=== PATIENT | male | born 1970 | race Caucasian/White ===

== ENCOUNTER 2023-03-21 13:31 | Emergency (ER) | payer OTHER, SELFPAY ==
[2023-03-21 13:44] VITALS: BP 130/97
[2023-03-21 14:31] LABS: % Basophils 1.1 % (0-2); % Eosinophils 2.5 % (0-6); % Immature Granulocytes 0.2 % (0-0.5); % Lymphocytes 14.6 % (20.5-51.1); % Monocytes 9.6 % (1.7-9.3); Absolute Basophils 0.1 10^3/uL (0-0.2); Absolute Eosinophils 0.2 10^3/uL (0-0.7); Absolute Lymphocytes 1.2 10^3/uL (1.2-3.4); Absolute Monocytes 0.8 10^3/uL (0.1-0.6); Absolute Neutrophils 6.1 10^3/uL (1.4-6.5); Hematocrit 30.2 % (39.0-52.0); Hemoglobin 9.6 g/dL (13.0-18.0); Mean Corp Hgb Conc. 31.8 g/dL (33.0-37.0); Mean Corpuscular Hgb 24.7 pg (27.0-31.0); Mean Corpuscular Volume 77.8 fL (80.0-94.0); Mean Platelet Volume 8.7 fL (7.4-10.4); Nucleated Red Blood Cells % 0 % (-); Platelet Count 638 10^3/uL (130-400); Red Blood Cell Count 3.88 10^6/uL (4.70-6.10); Red Cell Dist. Width 17.3 % (11.5-14.5); White Blood Cell Count 8.5 10^3/uL (4.8-10.8)
[2023-03-21 14:41] LABS: ALT (SGPT) 30 U/L (0-50); AST (SGOT) 77 U/L (17-59); Albumin 3.8 g/dl (3.5-5.0); Alkaline Phosphatase 490 U/L (38-126); Blood Urea Nitrogen 9 mg/dl (9-20); Calcium 9.3 mg/dl (8.4-10.2); Carbon Dioxide 26 mmol/L (22-30); Chloride 102 mmol/L (98-107); Glucose 101 mg/dl (70-99); Lipase 60 U/L (23-300); Potassium 4.5 mmol/L (3.5-5.1); Sodium 133 mmol/L (135-145); Total Protein 7.2 g/dl (6.3-8.2); eGFR > 60.00
[2023-03-21 15:41] LABS: Total Bilirubin 0.9 mg/dl (0.2-1.3)
== END 2023-03-21 18:51 ==
LOC: EMR 13:31
PROVIDERS: EMERGENCY PHYSICIAN Student in an Organized Health Care Education/Training Program
DX: R32 Unspecified urinary incontinence (principal); Z53.21 Procedure and treatment not carried out due to patient leaving prior to being seen by health care provider; R39.198 Other difficulties with micturition; R22.43 Localized swelling, mass and lump, lower limb, bilateral; R20.0 Anesthesia of skin; Z93.3 Colostomy status
CPT/HCPCS: 80053; 83690; 85025

== ENCOUNTER → 2023-03-30 07:46 | Outpatient (REF) | payer OTHER, SELFPAY | LOC: MRI 07:46 | PROVIDERS: ATTENDING PHYSICIAN Internal Medicine Hospice and Palliative Medicine | DX: C20 Malignant neoplasm of rectum (principal); C78.7 Secondary malignant neoplasm of liver and intrahepatic bile duct; C78.00 Secondary malignant neoplasm of unspecified lung; R32 Unspecified urinary incontinence | CPT/HCPCS: 72158; A9575 ==

== ENCOUNTER 2023-04-04 17:52 | Observation (INO) | payer OTHER, SELFPAY ==
[2023-04-04 12:13] VITALS: BP 130/86
--- NOTE | 2023-04-04 13:02 | ED.GENMED ---
History of Present Illness
General
Chief Complaint: Abdominal Pain
Source: patient
Exam Limitations: none
Time Seen by Provider: 04/04/23 12:22
Travel History
Have you had any contact with someone who has COVID-19?: No
Do you have any symptoms of coronavirus? Fever > 100 degrees, chills, cough, shortness of breath, sore throat, loss of taste or smell, muscle aches, or headache?: No
History of Present Illness
History of Present Illness:
52-year-old male with stage IV colon cancer and prior colostomy which was placed in December 12 in [place]. He notes decreased output recently. He notes more protrusion of the stoma. He notes it is discolored and feels that it is necrotic. No
fever. No vomiting. No other complaints at this time.
Past History
Past History
ED Past Medical History: Cancer (Stage IV:) and Other (Seymour disease)
Social History
Tobacco: Non-smoker
Personal:
Phy Exam
Physical Exam
Physical Exam:
General: Cachectic appearing male no acute respiratory distress
HEENT: Normocephalic atraumatic
Heart: Regular rate and rhythm
Lungs: Clear bilaterally no wheezing
Abdomen is soft protruding ostomy noted. Ostomy itself is somewhat firm to the touch. There is a bacon discoloration no the distal portion of the ostomy that goes around in a bandlike fashion.
Extremities: No cyanosis
Skin: Warm no rash
Course
Orders/Labs/Results
Orders:
Orders
04/04/23 Lunch
Regular
04/04/23 13:01
Complete Blood Count/With Diff Urgent
Comprehensive Metabolic Panel Urgent
Lactic Acid Q4H
Comment: CANCEL 2nd LACTIC ACID IF 1st LACTIC ACID IS LESS THAN 2
04/04/23 15:03
WOUND/OSTOMY CONSULT Routine
Reason for Consult: history of prolapsing colostomy
04/04/23 15:08
Activity As Directed
Activity Level: Bathroom Privileges
04/04/23 20:00
Docusate Sodium [Colace] 100 mg PO BID
Polyethylene Glycol Powder [Miralax] 17 grams PO BID
Abnormal Lab Results
04/04/23
13:01
RBC 3.51 L 10^6/uL
(4.70-6.10)
Hgb 8.6 L g/dL
(13.0-18.0)
Hct 27.9 L %
(39.0-52.0)
MCV 79.5 L fL
(80.0-94.0)
MCH 24.5 L pg
(27.0-31.0)
MCHC 30.8 L g/dL
(33.0-37.0)
RDW 16.3 H %
(11.5-14.5)
Plt Count 588 H 10^3/uL
(130-400)
Absolute Lymphs (auto) 0.7 L 10^3/uL
(1.2-3.4)
Absolute Monos (auto) 0.8 H 10^3/uL
(0.1-0.6)
Neutrophils % 77.8 H %
(42.2-75.2)
Lymphocytes % 8.9 L %
(20.5-51.1)
Monocytes % 9.5 H %
(1.7-9.3)
Sodium 133 L mmol/L
(135-145)
Glucose 108 H mg/dl
(70-99)
AST 61 H U/L
(17-59)
Alkaline Phosphatase 509 H U/L
(38-126)
Albumin 3.3 L g/dl
(3.5-5.0)
04/04/23 13:01
04/04/23 13:01
Vital Signs
Initial and Last Documented VS:
Initial Vital Signs
Temp Pulse Resp BP Pulse Ox
98.2 F 122 18 130/86 100
04/04/23 12:13 04/04/23 12:13 04/04/23 12:13 04/04/23 12:13 04/04/23 12:13
Last Documented Vital Signs
Temp Pulse Resp BP Pulse Ox
98.2 F 122 18 130/86 100
04/04/23 12:13 04/04/23 12:13 04/04/23 12:13 04/04/23 12:13 04/04/23 12:13
MDM/Problems Addressed
Differential Diagnosis Includes:
Protruding ostomy with discoloration of the ostomy per the patient. They noted decreased output.
Discussed findings and sent pictures with colorectal surgery. Labs pending
*Critical Care Note
Total Time (30-74mins, 75-104mins- exclusive of procedures): Not Applicable
Update Note
Update Note:
Colorectal surgery saw the patient. They applied glucose to the stoma and were able to reduce the prolapsed ostomy. They did recommend patient be admitted overnight for bowel regimen and observation. Hospitalist called
ED Attending Note
-
Portions of this chart may have been created with voice recognition software.� Occasional wrong word or��sound alike� substitutions may have occurred due to the inherent limitations of voice recognition software.
Discharge Plan
Departure
Patient Disposition: Admit
Date of Disposition: 04/04/23
Time of Disposition: 15:41
Admit to: Med/Surg
Presentation/result/management discussed w/ accepting MD/DO: Hospitalist
Discharge Problem:
Colostomy prolapse
Referrals:
Brit Cummins MD [Family Provider] -
Interventions
Interventions:
*Risk Screen - Suicide Last Done: 04/04/23 12:13
*General Assessment Last Done: 04/04/23 12:13
*Neglect/Abuse Screening Last Done: 04/04/23 12:13
*ED COVID-19 Vaccine History Last Done: 04/04/23 12:13
FV-Mzrcfj-Gwobzbilqm Assessment Last Done: 04/04/23 13:05
[2023-04-04 13:22] LABS: ALT (SGPT) 27 U/L (0-50); AST (SGOT) 61 U/L (17-59); Albumin 3.3 g/dl (3.5-5.0); Alkaline Phosphatase 509 U/L (38-126); Blood Urea Nitrogen 10 mg/dl (9-20); Calcium 8.7 mg/dl (8.4-10.2); Carbon Dioxide 25 mmol/L (22-30); Chloride 103 mmol/L (98-107); Glucose 108 mg/dl (70-99); Potassium 4.4 mmol/L (3.5-5.1); Sodium 133 mmol/L (135-145); Total Bilirubin 0.9 mg/dl (0.2-1.3); Total Protein 6.6 g/dl (6.3-8.2); eGFR > 60.00
[2023-04-04 13:25] LABS: % Basophils 0.9 % (0-2); % Eosinophils 2.5 % (0-6); % Immature Granulocytes 0.4 % (0-0.5); % Lymphocytes 8.9 % (20.5-51.1); % Monocytes 9.5 % (1.7-9.3); % Neutrophils 77.8 % (42.2-75.2); Absolute Basophils 0.1 10^3/uL (0-0.2); Absolute Eosinophils 0.2 10^3/uL (0-0.7); Absolute Lymphocytes 0.7 10^3/uL (1.2-3.4); Absolute Monocytes 0.8 10^3/uL (0.1-0.6); Absolute Neutrophils 6.1 10^3/uL (1.4-6.5); Hematocrit 27.9 % (39.0-52.0); Hemoglobin 8.6 g/dL (13.0-18.0); Mean Corp Hgb Conc. 30.8 g/dL (33.0-37.0); Mean Corpuscular Hgb 24.5 pg (27.0-31.0); Mean Corpuscular Volume 79.5 fL (80.0-94.0); Mean Platelet Volume 8.8 fL (7.4-10.4); Nucleated Red Blood Cells % 0 % (-); Platelet Count 588 10^3/uL (130-400); Red Blood Cell Count 3.51 10^6/uL (4.70-6.10); Red Cell Dist. Width 16.3 % (11.5-14.5); White Blood Cell Count 7.9 10^3/uL (4.8-10.8)
--- NOTE | 2023-04-04 13:38 | CON.CRS ---
Consultation
-
Date/Time Consultation Requested: 04/04/2023, 12:45
Date/Time Consultation Performed: 04/04/2023, 13:40
Requesting Provider: Rubén Mcclain PA-C
Performing Provider: Aj Crump MD
Reason for Consultation: prolapsing stoma
Medical History
-
Chief Complaint: prolapsing stoma
History of Present Illness:
52yo male with a history of stage IV sigmoid colon cancer, presents with a prolapsing stoma and mucosal sloughing. The patient states he had a diverting colostomy in [place] 1.5 years ago secondary to an obstruction, which is where he was diagnosed with
colon cancer. He saw three oncologists at [place], [facility], and [facility]. All have given him a prognosis of 6 months. He has refused chemotherapy with each oncologist. He has metastasis in his liver and lungs. He is currently on palliative
care. His bowel movements have been lessened to every other day and more recently has increased his Miralax to twice a day. He also has had more difficulty urinating and was recently started on Flomax, which helped. He has apparently had two
instances of prolapse in the past two weeks and have used the 'sugar trick' to reduce. He states the prolapse again started to protrude more today and appeared necrotic looking. We have been consulted for further surgical opinion.
Past Medical History
Past Medical History: Cancer (stage 4 colon cancer) and Other (hemophilia B)
Past Surgical History: Other (colostomy creation - Nov 2022 in [place])
Social History
Tobacco: Non-Smoker
Personal:
Family History
Family History: Reviewed & Not Pertinent
Allergies / Home Medications
Allergy/AdvReac Type Severity Reaction Status Date / Time
No Known Allergies Allergy Verified 04/04/23 12:16
Review of Systems
-
History Source: Patient
Abdomen/GI: Other (prolapsing stoma)
A 10 point review of systems was completed, and was negative except as per HPI.
Physical Exam
Vital Signs
Temp 98.2 F 04/04/23 12:13
Pulse 122 04/04/23 12:13
Resp Rate 18 04/04/23 12:13
Blood pressure 130/86 04/04/23 12:13
SaO2 100 04/04/23 12:13
04/03/23 04/04/23 04/05/23
06:59 06:59 06:59
Actual Weight 59.4 kg
Lab Results / Allergies
04/04/23 13:01
Allergy/AdvReac Type Severity Reaction Status Date / Time
No Known Allergies Allergy Verified 04/04/23 12:16
Physical Exam
General: Well Developed and Well Nourished
GI: Soft, Non Tender, Non Distended and Other (stoma with healthy tissue, warm to the touch, with prolapse, very mild sloughing on the side of the stoma - reduced at the bedside using table sugar)
Neuro: AO x 3
Data Reviewed
-
MRI: Report Reviewed by me and Discussed with Physician
Labs: Labs Reviewed by me
Old Records: Reviewed
Assessment / Plan
-
Assessment: 52yo male with stage IV colon cancer, s/p diverting loop colostomy, refused chemo on palliative care, with prolapsing stoma
Plan:
Stoma was reduced at the bedside after applying table sugar to it and letting it sit for about 20 minutes. Stoma was able to be reduced without resistance. Stoma is still red and healthy appearing post reduction. Recommend admit for pain control and
a day of observation to watch stoma. Recommend bedrest with bathroom privileges. Will start on Miralax BID and Senna BID. Okay to resume regular diet. Wound RN to be consulted. No plans for OR at this time.
[2023-04-04 13:49] LABS: Lactic Acid 1.4 mmol/L (0.7-2.0)
--- NOTE | 2023-04-04 15:47 | WOUNDNOTE ---
HARRY RN NOTE: Patient admitted for prolapsed stoma. PMH of colon cancer stage 4 Colostomy done in [facility] 1.5 yrs ago. Reviewed ANDREIA Louie's note, prolapse treated with sugar and mechanical manipulation. Patient lying in bed during assessment, stoma pink
and flat, peristomal skin intact. Zulema at bedside and patient's mother. Has one set of [place] 4' wafer and pouch, scissors and skin prep given to patient. Additional ostomy supplies ordered from [facility], nurse Naida sanders. Offered to
change appliance for patient, said he can do on his own. Teaching done regarding prolapsed stoma treatment, can use sugar on stoma to reduce and or cold compress then gently push with palm of hand. Family appreciative with care will follow if
needed, otherwise will sign off.
--- NOTE | 2023-04-04 16:30 | HPS.HSE ---
Addendum entered and electronically signed by Jessica Pascual MD 04/04/23 17:45:
52-year-old unfortunate male with colon cancer diagnosed almost 2 years ago at [facility]. He had ostomy done in [place]. Patient is not on any chemo by his choice.
I saw and examined the patient.
The FAN INSTALLER or PA's note was reviewed and I agree with the note.
Comment:
CVS: S1-S2 normal
Chest: CTA B/L
Abdomen: Soft, ostomy stable, empty bag
Extremities: No edema, normal pulses
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
# Prolapsed ostomy and decreased output
-Colorectal surgery reduced stoma after applying table sugar
-MiraLAX twice a day and Colace twice a day
-Regular diet
-Wound care consulted
-He also takes Prune Juice
# Anemia of chronic disease
-Hemoglobin 8.6
-No active bleeding
-Continue to monitor
# Chronic hyponatremia
-Sodium 133
-Continue to monitor
# DVT prophylaxis
-Lovenox subcutaneous
# CODE STATUS
-DNR per patient preference.
aware
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
D/W at bed side
Original Note:
Family Physician
-
Family Physician: Brit Cummins MD
Chief Complaint
-
ostomy prolapse
History of Present Illness
52yo male with a history of stage IV sigmoid colon cancer, presents with a prolapsing stoma and mucosal sloughing. The patient states he had a diverting colostomy in [place] 1.5 years ago secondary to an obstruction, which is where he was diagnosed with
colon cancer. He saw three oncologists at [place], [facility], and [facility]. All have given him a prognosis of 6 months. He has refused chemotherapy with each oncologist. He has metastasis in his liver and lungs. He is currently on palliative
care. His bowel movements have been lessened to every other day and more recently has increased his Miralax to twice a day. he is having hards stools for past few days. patient stated poor appetite and has been eating less as well. denied n/v.
denied fever, chills, chest pain, sob. denied abdominal pain,n,v, d. denied dysuria or hematuria. He states the prolapse again started to protrude more today and appeared necrotic looking which prompted him to come to the ER.
stoma was reduced at the bedside after applying table sugar to it.
Medical History
Past Medical History
Past Medical History: Reports Other
Additional Past Medical History:
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
Past Surgical History: Reports Other
Additional Past Surgical History:
ostomy creation
Social History
Tobacco: Non-smoker
Alcohol: None
Drug: None
Family History
Family History: Not pertinent
Allergies / Home Medications
Allergies reflects when Allergies were last updated in [facility].
Home Medications with original date entered in [employer]
Allergy/Medication List:
Allergies
Allergy/AdvReac Type Severity Reaction Status Date / Time
No Known Allergies Allergy Verified 04/04/23 12:16
Home Medications
oxycodone 10 mg tablet 10 mg PO Q6H PRN moderate to severe pain 04/04/23
oxycodone 20 mg tablet 20 mg PO Q6H PRN moderate to severe pain 04/04/23
oxycodone 30 mg tablet,crush resistant,extended release 12 hr (OxyContin) 30 mg PO Q12H pain 04/04/23
tamsulosin 0.4 mg capsule 0.8 mg PO HS Urinary Issue 04/04/23
Review of Systems
-
Constitutional: Reports No Symptoms
EENT: Reports No Symptoms
Respiratory: Reports No Symptoms
Cardiac: Reports No Symptoms
Abdomen/GI: Reports Other (stoma prolapse)
: Reports No Symptoms
Musculoskeletal: Reports No Symptoms
Skin: Reports No Symptoms
Neurological: Reports No Symptoms
Endocrine: Reports No Symptoms
Hematologic/Lymphatic: Reports No Symptoms
Psych: Reports No Symptoms
Physical Exam
Vital Signs
Vital Signs
Temp Pulse Resp BP Pulse Ox
98.2 F 122 18 130/86 100
04/04/23 12:13 04/04/23 12:13 04/04/23 12:13 04/04/23 12:13 04/04/23 12:13
Physical Exam
General: Well Developed, Well Nourished and No Apparent Distress
HEENT: NormoCephalic, Moist mucous membranes and Atraumatic
Respiratory: Clear
Cardiac: S1/S2 and Regular Rhythm; No Murmur or Rub
GI: Soft, Non Tender, Non Distended and Normal Bowel Sounds; No Organomegaly
Rectal: Deferred by Provider
Musculoskeletal: No Clubbing, No Cyanosis and No Edema
Skin: No Rash
Neuro: AO x 3 and Nonfocal/grossly intact
Psych: Calm
Laboratory Results
-
04/04/23 13:01
04/04/23 13:01
Laboratory Results
Lactic Acid Cancelled 04/04/23 16:45
Total Bilirubin 0.9 mg/dl (0.2-1.3) 04/04/23 13:01
AST 61 U/L (17-59) H 04/04/23 13:01
ALT 27 U/L (0-50) 04/04/23 13:01
Alkaline Phosphatase 509 U/L (38-126) H 04/04/23 13:01
Data Reviewed
-
Lab Data: Labs Reviewed by me
Impression/Plan
-
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
# Prolapsed ostomy and decreased output
-colorectal surgery reduced stoma after applying table sugar
-MiraLAX twice a day and colace twice a day
-Regular diet
-Wound care consulted
-colorectal following patient.
# Anemia of chronic disease
-Hemoglobin 8.6
-No active bleeding
-Continue to monitor
# Chronic hyponatremia
-Sodium 133
-Continue to monitor
# DVT prophylaxis
-Lovenox subcu
# CODE STATUS
-Full code
[2023-04-04] MEDS: MIRALAX 34 GRAMS PO (17:49)
[2023-04-04 17:59] LABS: Iron 31 ug/dl (49-181)
[2023-04-04 18:10] LABS: Percent Saturation 10 % (20-50); Total Iron Binding Capacity 289 ug/dl (261-462)
[2023-04-04 19:25] LABS: Vitamin B12 727 pg/ml (239-931)
[2023-04-04 19:30] VITALS: BP 110/73; BMI 18.2
--- NOTE | 2023-04-04 20:00 | PTCARENOTE ---
Pt arrived to 3W from ED via stretcher @ approximately 1930. Pt able to ambulate safely to the bed. Pt family present at bedside. Pt AOx3, VSS. Pt oriented to unit and call arredondo within reach. Will continue plan of care.
[2023-04-04] MEDS: OXYCONTIN (CONTROLLED RELEASE) 30 MG PO (20:16)
[2023-04-04] MEDS: MIRALAX 17 GRAMS PO (21:36)
[2023-04-04] MEDS: FLOMAX 0.800000000000000044 MG PO (21:36)
[2023-04-04 23:25] VITALS: BP 107/81
[2023-04-04] MEDS: ROXICODONE 20 MG PO (23:49)
[2023-04-05] MEDS: ROXICODONE 20 MG PO (06:08)
[2023-04-05 07:00] VITALS: BP 113/77
[2023-04-05 07:05] LABS: Hematocrit 27.1 % (39.0-52.0); Hemoglobin 8.5 g/dL (13.0-18.0); Mean Corp Hgb Conc. 31.4 g/dL (33.0-37.0); Mean Corpuscular Hgb 24.8 pg (27.0-31.0); Mean Platelet Volume 8.8 fL (7.4-10.4); Platelet Count 522 10^3/uL (130-400); Red Blood Cell Count 3.43 10^6/uL (4.70-6.10); Red Cell Dist. Width 16.2 % (11.5-14.5); White Blood Cell Count 9.5 10^3/uL (4.8-10.8)
[2023-04-05 07:35] LABS: Blood Urea Nitrogen 10 mg/dl (9-20); Calcium 8.6 mg/dl (8.4-10.2); Carbon Dioxide 23 mmol/L (22-30); Chloride 102 mmol/L (98-107); Estimated Creatinine Clearance 82 ml/min; Glucose 115 mg/dl (70-99); Potassium 4.1 mmol/L (3.5-5.1); Sodium 135 mmol/L (135-145); eGFR > 60.00
[2023-04-05] MEDS: MIRALAX 17 GRAMS PO (08:12)
[2023-04-05] MEDS: OXYCONTIN (CONTROLLED RELEASE) 30 MG PO (08:12)
--- NOTE | 2023-04-05 09:13 | WOUNDNOTE ---
HARRY RN NOTE: Called [facility] for additional ostomy supplies patient may want to try since stoma reduced and smaller size. Nurse Kacey made aware Abran 2 3/' 2 piece ordered and will give to patient to try next pouch change. Will update instructions.
--- NOTE | 2023-04-05 09:30 | W.PN.CRS1 ---
Today's Communication / Plan
-
Okay for DC from CRS standpoint
Would continue low residue long-term and continue MiraLAX and Colace twice daily with MOM as needed
Assessment/Plan
-
52-year-old male with a PMH of stage IV colorectal cancer (diagnosed 1-1/2 years ago due to presentation of obstruction; underwent loop colostomy and was recommended for chemotherapy, but refused; last CT scan on 01/24/2023's showing multiple
pulmonary and liver mets with bulky disease in the pelvis), chronic pain, urinary difficulty (recently started on Flomax twice daily) who presents with prolapse of his ostomy; worsening over the last 3 to 4 months, but significantly prolapsed about
2 weeks ago; he applied sugar after researching on the Internet and this significantly helped; within the last 1 to 2 days, the ostomy prolapsed again and started changing colors, specifically dark red and areas of bacon/black; on exam, ostomy is
beefy red with mucosal sloughing; has issues baseline with constipation, last BM yesterday
AFVSS, labs pending
S/p bedside reduction of prolapsed ostomy
Remains reduced and having ostomy function
� Continue low residue diet; recommend staying on low residue to keep ostomy output liquidy/soft to reduce risk of re�prolapse
� Appreciate WOCN for any advice on preventing ostomy prolapse
� Home pain meds
� Continue MiraLAX twice daily and Colace twice daily; MOM as needed
� Flomax twice daily for urinary retention
�Okay for discharge from CRS standpoint
Subjective Data
Subjective Data
Date of Service: April 05, 2023
No overnight events.
Pain controlled.
Denies nausea/vomiting. Tolerating diet.
+ostomy function +voiding
Objective Data
-
Vital Signs
Temp Pulse Resp BP Pulse Ox
97.7 F 87 16 113/77 99
04/05/23 07:00 04/05/23 07:00 04/05/23 07:00 04/05/23 07:00 04/05/23 08:51
Intake & Output
04/04/23 04/05/23 04/06/23
06:59 06:59 06:59
Intake Total 720 / 720
Output Total 300 / 300
Balance 420 / 420
Intake:
Oral fluids 720 / 720
Output:
Liquid stool amount 300 / 300
Colostomy 300 / 300
Other:
Number of approximated MODERATE 4
amounts of urine
Lab Results
04/05/23 06:39
04/05/23 06:39
Physical Exam
-
General: No Acute Distress and AOx3
HEENT: Grossly Normal
Abdomen: Soft, Non Distended, Non Tender, No Guarding and No Rebound
Skin: Warm and Dry
Wound: No Signs of Infection
--- NOTE | 2023-04-05 10:03 | VNURNOTE ---
Patient is current with VN since 04/03 w/ SN, will monitor progress and plan at discharge.
Patient is also current with Palliative Care.
[2023-04-05] MEDS: ROXICODONE 10 MG PO (10:47)
[2023-04-05 11:01] VITALS: BMI 18.2
--- NOTE | 2023-04-05 13:12 | W.PN.HOSP.TC ---
Today's Communication/Plan
-
Discharge
Assessment / Plan
Assessment / Plan
CVS: S1-S2 normal
Chest: CTA B/L
Abdomen: Soft, ostomy stable,yellow stools
Extremities: No edema, normal pulses
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
# Prolapsed ostomy and decreased output
-Colorectal surgery reduced stoma after applying table sugar
-MiraLAX twice a day and Colace twice a day
-Regular diet
-Ostomy stable
-He also takes Prune Juice
# Anemia of chronic disease
-Hemoglobin 8.6
-TAYLA also
-Pt does not want IV iron
-Will take suppliments at home
-Continue to monitor
# Chronic hyponatremia
-Sodium better
-Continue to monitor
# DVT prophylaxis
-Lovenox subcutaneous
# CODE STATUS
-DNR per patient preference.
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
Pt on Palliative care
D/W at bed side
OK for discharge
Anticipated Discharge: Today
Subjective/Interval History
-
Date of Service: April 05, 2023
Objective Data
-
Labs:
Laboratory Results
04/05/23
06:39
WBC 9.5
Hgb 8.5 L
Hct 27.1 L
Plt Count 522 H
Sodium 135
Potassium 4.1
Chloride 102
Carbon Dioxide 23
BUN 10
Creatinine 0.9
Glucose 115 H
Calcium 8.6
Vital Signs:
Vital Signs
Temp Pulse Resp BP Pulse Ox
97.7 F 87 16 113/77 99
04/05/23 07:00 04/05/23 07:00 04/05/23 07:00 04/05/23 07:00 04/05/23 08:51
I&O
04/04/23 04/05/23 04/06/23
06:59 06:59 06:59
Intake Total 720 / 720
Output Total 300 / 300
Balance 420 / 420
--- NOTE | 2023-04-05 13:17 | W.DS.TRANS ---
Addendum entered and electronically signed by Jessica Pacsual MD 04/06/23 08:17:
Dictation- [id number]
Original Note:
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
-
Discharge Instructions:
Discharge Diagnosis/Procedures Prolapsed ostomy-reduced, Stage IV colorectal
cancer, anemia, iron deficiency
Diet As tolerated
Activity As tolerated
Driving Restrictions As prior to admission
Other Services VN
Instructions:
Stand-Alone Forms:
Changes to Home Medications: Yes
Discharge Medications:
DC Medications w/original date entered in [facility]
oxycodone 10 mg tablet 10 mg PO Q6H PRN moderate to severe pain 04/04/23
oxycodone 20 mg tablet 20 mg PO Q6H PRN moderate to severe pain 04/04/23
oxycodone 30 mg tablet,crush resistant,extended release 12 hr (OxyContin) 30 mg PO Q12H pain 04/04/23
tamsulosin 0.4 mg capsule 0.8 mg PO HS Urinary Issue 04/04/23
docusate sodium 100 mg capsule 100 mg PO BID Constipation #0 caps 04/05/23
ferrous sulfate 325 mg (65 mg iron) tablet 325 mg PO DAILY anemia #30 tabs 04/05/23
polyethylene glycol 3350 17 gram oral powder packet (HealthyLax) 17 g PO BID Constipation #0 ea 04/05/23
Home Medication Changes
new
docusate sodium 100 mg capsule 100 mg PO BID Constipation #0 caps 04/05/23
ferrous sulfate 325 mg (65 mg iron) tablet 325 mg PO DAILY anemia #30 tabs 04/05/23
polyethylene glycol 3350 17 gram oral powder packet (HealthyLax) 17 g PO BID Constipation #0 ea 04/05/23
Pending Results: No
--- NOTE | 2023-04-05 16:32 | VNURNOTE ---
[facility] intake notified of discharge and resumption of services.
== END 2023-04-05 14:51 | disposition home health service (06) ==
LOC: 3 WEST ACU 17:52
PROVIDERS: Physician Assistant; Registered Nurse; ADMITTING PHYSICIAN Hospitalist; CONSULT PHYSICIAN Surgery; EMERGENCY PHYSICIAN Emergency Medicine; FAMILY PHYSICIAN Internal Medicine Hospice and Palliative Medicine
DX: K94.09 Other complications of colostomy (principal); Y84.8 Other medical procedures as the cause of abnormal reaction of the patient, or of later complication, without mention of misadventure at the time of the procedure; Y92.9 Unspecified place or not applicable; R33.9 Retention of urine, unspecified; D63.8 Anemia in other chronic diseases classified elsewhere; E87.1 Hypo-osmolality and hyponatremia; C19 Malignant neoplasm of rectosigmoid junction; D50.9 Iron deficiency anemia, unspecified; C78.7 Secondary malignant neoplasm of liver and intrahepatic bile duct; G89.29 Other chronic pain; Z51.5 Encounter for palliative care; Z66 Do not resuscitate
CPT/HCPCS: 80048; 80053; 82607; 82728; 83540; 83550; 83605; 85025; 85027; 99284; G0378

== ENCOUNTER 2023-05-05 18:09 | Emergency (ER) | payer OTHER, SELFPAY ==
[2023-05-05 18:12] VITALS: BP 115/82
--- NOTE | 2023-05-05 20:14 | ED.GENMED ---
History of Present Illness
General
Chief Complaint: Ostomy Problem
Source: patient and spouse
Time Seen by Provider: 05/05/23 19:54
Travel History
Have you had any contact with someone who has COVID-19?: No
Do you have any symptoms of coronavirus? Fever > 100 degrees, chills, cough, shortness of breath, sore throat, loss of taste or smell, muscle aches, or headache?: No
History of Present Illness
History of Present Illness:
This patient is a 52-year-old male with history of colorectal cancer with lung and liver mets, now on palliative care, transitioning to hospice care shortly who presents emergency department with a ostomy prolapse. He states that this began about a
week ago. He is eating as usual, and he notes normal output from the ostomy without blood. In the past, he has had an ostomy prolapse that has looked 'hard' with 'sloughing', and states that none of this is present at this time, that the ostomy
looks healthy. He came today specifically because he was told that he cannot transition to hospice without getting this reduced. He denies vomiting, fever, chills. His pain is well-controlled at this time.
Past History
Past History
ED Past Medical History: Cancer (Stage IV colon) and Other (Ck disease)
ED Past Surgical History: Bowel resection
Social History
Tobacco: Non-smoker
Drug: None
Personal:
Living: with family
Phy Exam
Physical Exam
Physical Exam:
GENERAL: Alert , in no apparent distress, thin/cachectic appearing
EYE: pupils equal and reactive
NECK: Supple, no significant adenopathy.
ENT: o/p clr, mm slightly dry
CARDIAC: Regular rate and rhythm .
LUNGS: Clear breath sounds bilaterally, no acute respiratory distress, no wheezes/rales/rhonchi
ABDOMEN: Soft, without focal tenderness, no r/g, ostomy noted with prolapse measuring approximately 10 cm without associated necrosis, sloughing, bleeding, discharge, tissue appears well-perfused and healthy
NEUROLOGICAL: Alert and oriented, no focal neuro deficits
SKIN: Warm and dry, skin intact.
MUSCULOSKELETAL: No edema, well perfused.
PSYCH: Normal and appropriate interaction.
Course
Vital Signs
Initial and Last Documented VS:
Initial Vital Signs
Temp Pulse Resp BP Pulse Ox
98.0 F 108 18 115/82 100
05/05/23 18:12 05/05/23 18:12 05/05/23 18:12 05/05/23 18:12 05/05/23 18:12
Last Documented Vital Signs
Temp Pulse Resp BP Pulse Ox
98.0 F 108 18 115/82 100
05/05/23 18:12 05/05/23 18:12 05/05/23 18:12 05/05/23 18:12 05/05/23 18:12
*Critical Care Note
Total Time (30-74mins, 75-104mins- exclusive of procedures): Not Applicable
Update Note
Update Note:
Patient presents to the Emergency Department with ostomy prolapse____
Number and Complexity of Problems Addressed at the Encounter
� Chronic conditions affecting care:
� Acute Exacerbation and/or Progression of Chronic Illness:
� Differential Diagnosis includes: But not limited to ostomy prolapse, ostomy ischemia, etc.
Amount and/or Complexity of Data to be Reviewed and Analyzed
� I performed an independent evaluation of and my interpretation is:
EKG:
CT:
Xrays:
Laboratory Studies:
Other:
� Review of other/old records reveals: Patient was admitted within the past month for an ostomy prolapse that was reduced by surgery with sugar
� Clinical information was obtained by an independent historian: who is at bedside
� Prescriptions/Medications Considered but not given:
� Further testing considered but not performed:
Risk of Complications and/or Morbidity or Mortality of Patient Management
� Social determinants of health affecting care:
� Discussion with other providers (PCP, Hospitalists, Consultants, etc): Case discussed with surgery, Dr. Crump, who will see the patient within the next 45 minutes or so and asked for sugar at bedside. Will update patient.
� Escalation of care including admission/observation vs risk of discharge considered: dR Crump successfully reduced prolpase and states pt stable for d/c.
ED Attending Note
-
Portions of this chart may have been created with voice recognition software.� Occasional wrong word or��sound alike� substitutions may have occurred due to the inherent limitations of voice recognition software.
Discharge Plan
Departure
Patient Disposition: Home (Routine Discharge)
Date of Disposition: 05/05/23
Time of Disposition: 21:33
Patient with high blood pressure during this ER visit?: Yes
Condition: Good
Discharge Problem:
Colostomy prolapse
Instructions: BLOOD PRESSURE
Prescriptions:
No Action
tamsulosin 0.4 mg capsule
0.8 mg PO HS
oxycodone 10 mg tablet
10 mg PO Q6H PRN (Reason: moderate to severe pain)
Patient Comments:
04/04/2023: last filled 02/28/23, 120 tabs for 30 days from [id number]
oxycodone 20 mg tablet
20 mg PO Q6H PRN (Reason: moderate to severe pain)
Patient Comments:
04/04/2023: last filled 03/25/23, 120 tabs for 30 days from [id number]
Pt does not normally take 40mg, but was in severe pain after dr was pressing stoma.
oxycodone [OxyContin] 30 mg tablet,oral only,ext.rel.12 hr
30 mg PO Q12H
Patient Comments:
04/04/2023: last filled 03/01/23, 60 tabs for 30 days from [id number]
polyethylene glycol 3350 [HealthyLax] 17 gram Powder In Packet
17 g PO BID Qty: 0 0RF
docusate sodium 100 mg Capsule
100 mg PO BID Qty: 0 0RF
ferrous sulfate 325 mg (65 mg iron) tablet
325 mg PO DAILY Qty: 30 0RF
Referrals:
Brit Cummins MD [Family Provider] -
Activity Restrictions/Additional Instructions:
IF YOU DEVELOP FEVER, VOMITING, OSTOMY PROLAPSE, NEW/UNCONTROLLED PAIN, OR OTHER WORRISOME SIGNS, GO TO THE ER IMMEDIATELY!
Interventions
Interventions:
*Risk Screen - Suicide Last Done: 05/05/23 18:12
*General Assessment Last Done: 05/05/23 18:12
*Neglect/Abuse Screening Last Done: 05/05/23 18:12
ED- Fall Risk Assessment Last Done: 05/05/23 18:50
*ED COVID-19 Vaccine History Last Done: 05/05/23 18:12
KB-Vcwmxx-Azfdosiret Assessment Last Done: 05/05/23 18:50
ED-Male Genitourinary Assessment Last Done: 05/05/23 18:50
--- NOTE | 2023-05-05 21:40 | CON.CRS ---
Consultation
-
Performing Provider: Aj Crump MD
Reason for Consultation: prolapsed colostomy
Medical History
-
History of Present Illness:
52-year-old male with a PMH of stage IV colorectal cancer (diagnosed 1-1/2 years ago due to presentation of obstruction; underwent loop colostomy and was recommended for chemotherapy, but declined; CT scan on 01/24/2023 showing multiple pulmonary and
liver mets with bulky disease in the pelvis), chronic pain, urinary difficulty (on flomax), recent presentation for prolapsed colostomy on 04/05/23 (s/p successful reduction with sugar and pain medicine) who presents with recurrence of prolapse. He
recently decided to join hospice, but the hospice nurse noted that the ostomy was prolapsed. He continues to have ostomy function. The ostomy is pink without evidence of ischemia. However, after discussion with the hospice doctor, they felt it
important to address prior to being accepted into the hospice program. The patient's had called my office and I explained the importance of performing the reduction in the ER as they would be able to provide IV pain medication as needed. They
presented today for an attempt at reduction. He states that he tried using sugar earlier today as well as manual pressure, but was unable to reduce it himself. He denies any symptoms related to this such as abdominal pain, nausea/vomiting, or
change in the color of the ostomy. They suspect that the prolapse occurred because he had a period of not feeling well and went off of his bowel regiment, which led to constipation and likely worsening of the prolapse.
Past Medical History
Past Medical History: Other (Stage IV colon cancer, hemophilia B)
Past Surgical History: Other (Colostomy creation 11/2022)
Social History
Tobacco: Non-Smoker
Personal:
Allergies / Home Medications
Allergy/AdvReac Type Severity Reaction Status Date / Time
No Known Allergies Allergy Verified 05/05/23 18:13
Medication Instructions Recorded Confirmed Type
oxycodone 10 mg tablet 10 mg PO Q6H PRN moderate to 04/04/23 04/04/23 History
severe pain
oxycodone 20 mg tablet 20 mg PO Q6H PRN moderate to 04/04/23 04/04/23 History
severe pain
oxycodone 30 mg tablet,crush 30 mg PO Q12H pain 04/04/23 04/04/23 History
resistant,extended release 12 hr
(OxyContin)
tamsulosin 0.4 mg capsule 0.8 mg PO HS Urinary Issue 04/04/23 04/04/23 History
docusate sodium 100 mg capsule 100 mg PO BID Constipation #0 caps 04/05/23 Rx
ferrous sulfate 325 mg (65 mg 325 mg PO DAILY anemia #30 tabs 04/05/23 Rx
iron) tablet
polyethylene glycol 3350 17 gram 17 g PO BID Constipation #0 ea 04/05/23 Rx
oral powder packet (HealthyLax)
Review of Systems
-
All other systems: Negative unless noted
A 10 point review of systems was completed, and was negative except as per HPI.
Physical Exam
Vital Signs
Temp 98.0 F 05/05/23 18:12
Pulse 108 05/05/23 18:12
Resp Rate 18 05/05/23 18:12
Blood pressure 115/82 05/05/23 18:12
SaO2 100 05/05/23 18:12
Lab Results / Allergies
Allergy/AdvReac Type Severity Reaction Status Date / Time
No Known Allergies Allergy Verified 05/05/23 18:13
Physical Exam
General: No Apparent Distress, Comfortable and Other (Cachectic)
HEENT: Normocephalic and Atraumatic
Respiratory: Non Labored Respirations
GI: Soft, Non Tender, Non Distended and Other (Loop colostomy with distal loop prolapsed about 10 cm, mucosa pink without evidence of ischemia, nonedematous)
Skin: Warm and Dry
Neuro: AO x 3
Assessment / Plan
-
52-year-old male with a PMH of stage IV colorectal cancer (diagnosed 1-1/2 years ago due to presentation of obstruction; underwent loop colostomy and was recommended for chemotherapy, but declined; last CT scan on 01/24/2023 showing multiple
pulmonary and liver mets with bulky disease in the pelvis), chronic pain, urinary difficulty, recent colostomy prolapse s/p bedside reduction with sugar and pain medicine, who presents with asymptomatic recurrence of prolapse; hospice doctor
recommending a reduction of the colostomy prior to entering the hospice program
� Performed reduction with manual pressure and reduced easily without pain medicine or sugar
� Discussed with patient and that there is a risk of this occurring again and there is no great way to prevent a recurrence; I recommended holding pressure over the colostomy at any time the abdominal pressure is going to increase, like with
coughing or lifting something; additionally, preventing constipation will also help prevent this to recur
-Recommended colace BID, miralax PRN; ok to continue prune juice; Mag citrate and milk of magnesia are other options
� I explained that this prolapse was asymptomatic without any evidence of ischemia; prolapse itself is a benign issue as long as the ostomy continues to function and the blood supply is not cut off; however, once in the hospice program, even if
these issues do arise, they will help to manage any symptoms of nausea/vomiting or abdominal pain
� Okay for discharge from colorectal standpoint; instructed to call the office with any questions or concerns
== END 2023-05-05 22:04 | disposition home or self-care (01) ==
LOC: EMR 18:09
PROVIDERS: EMERGENCY PHYSICIAN Emergency Medicine; FAMILY PHYSICIAN Internal Medicine Hospice and Palliative Medicine; OTHER PHYSICIAN Surgery
DX: K94.09 Other complications of colostomy (principal); R03.0 Elevated blood-pressure reading, without diagnosis of hypertension
CPT/HCPCS: 99283

== ENCOUNTER 2023-06-03 14:12 | Inpatient (IN) | payer OTHER, SELFPAY ==
[2023-06-03 12:28] VITALS: BMI 14.4
--- NOTE | 2023-06-03 12:58 | ED.GENMED ---
History of Present Illness
General
Chief Complaint: Abdominal Pain
Source: patient, family and other (Hospice care nurse)
Time Seen by Provider: 06/03/23 12:55
Travel History
Have you had any contact with someone who has COVID-19?: No
Do you have any symptoms of coronavirus? Fever > 100 degrees, chills, cough, shortness of breath, sore throat, loss of taste or smell, muscle aches, or headache?: No
History of Present Illness
History of Present Illness:
52-year-old male with unfortunate history of end stage colon Ca. his pain at home has been uncontrolled despite high doses of morphine equivalent. Patient has been also unable to sleep. They had recently trialed Haldol. His pain is mostly in the
lower abdomen, pelvis and perineum
Past History
Past History
ED Past Medical History: Cancer (Stage IV colon) and Other ([place] disease)
ED Past Surgical History: Bowel resection
Social History
Tobacco: Non-smoker
Drug: None
Personal:
Living: with family
Phy Exam
Physical Exam
Physical Exam:
CONSTITUTIONAL Vital signs reviewed, Patient alert and oriented to person, place and time. Severely cachectic.
HEAD atraumatic, normocephalic.
EYES eyelids normal to inspection, Extraocular muscles intact
NECK normal range of motion, Trachea midline, no jugular venous distention.
RESP no respiratory distress
BACK No obvious deformities
UPPER EXTREMITY Gross Range of motion normal, gross motor strength normal
LOWER EXTREMITY Gross range of motion normal, Gross motor strength normal
NEURO Speech normal, No focal motor deficits include, [place] coma scale 15, Memory normal, Cranial Nerves intact to screening exam.
SKIN Skin warm, dry, and normal in color.
PSYCHIATRIC Patient oriented to person place and time, Normal affect.
Course
Orders/Labs/Results
Orders:
Orders
06/03/23 Lunch
NPO
Allow oral meds: Yes
Allow clear liquids: Sips of Clears
06/03/23 12:57
HYDROmorphone [Dilaudid] 2 mg IV NOW STA
06/03/23 13:49
HYDROmorphone [Dilaudid] 1 mg IV NOW STA
Ondansetron Injectable [Zofran] 4 mg IV NOW STA
06/03/23 14:00
Admit/Transfer Patient As Directed
Co-Sign Provider:
Level of Care: Inpatient admission
Assign to:: Medical/Surgical
Physician / Group: [facility]
Diagnosis: hospice
Reason for Hospitalization: hospice
Expected length of stay greater than two midnights?: Yes
ELOS- Estimated Length of Stay in days: 3
I certify the patient meets the requirements for IP care: Yes
Code Status As Directed
Resuscitation Status: Do not resuscitate
Reached after discussion with pt or family/Healthcare POA: Yes
06/03/23 14:01
DNR Bracelet Application ONCE
06/03/23 14:49
Acetaminophen [Tylenol/Feverall] 650 mg RECTAL Q4HPRN PRN
Acetaminophen [Tylenol] 650 mg PO Q4HPRN PRN
Bisacodyl [Dulcolax] 10 mg RECTAL DAILYPRN PRN
Glycopyrrolate [Robinul] 0.2 mg IV Q4HPRN PRN
Hyoscyamine Sulfate [Levsin Oral Drops] 0.125 mg SL Q4HPRN PRN
Lorazepam [Ativan] 1 mg IV Q2HPRN PRN
Mag Hydrox/Al Hydrox/Simeth [Maalox] 30 ml PO Q6HPRN PRN
Magnesium Hydroxide [Milk of Magnesia] 30 ml PO HSPRN PRN
Morphine Sulfate See Protocol IV [id number] PRN
Begin protocol on step:: refer to Morphine infusion order
Morphine Sulfate 100 mg/100 ml [Morphine] 100 mg in 100 ml IV PER PROTOCOL
Begin protocol on step:: 5
Ondansetron Injectable [Zofran] 4 mg IV Q6HPRN PRN
Prochlorperazine [Compazine] 10 mg IV Q6HPRN PRN
06/03/23 14:49
Admit Patient As Directed
Co-Sign Provider:
Level of Care: Inpatient admission
Assign to:: Inpatient Hospice
Physician / Group: hospitalists
Diagnosis: do, bernabe
Reason for Hospitalization: hospice
Expected length of stay greater than two midnights?: Yes
ELOS- Estimated Length of Stay in days: 3
I certify the patient meets the requirements for IP care: Yes
VTE Contraindication Routine
VTE Mechanical Device Contraindication: Comfort Care mgmt
Pharmocologic Contraindication: Comfort Care mgmt
Activity As Directed
Activity Level: Bedrest
Comfort Measures As Directed
Comment: Pain and Dyspnea assessment every 4 hours
End of Life Symptom Assessment Q4
Vital Signs As Directed
Frequency: Per unit guidelines
06/03/23 16:00
Scopolamine [Transderm-Scop] 1 patch TRANSDERM Q72H
Vital Signs
Initial and Last Documented VS:
Initial Vital Signs
Temp Pulse Resp Pulse Ox
97.6 F 123 18 97
06/03/23 12:28 06/03/23 12:28 06/03/23 12:28 06/03/23 12:28
Last Documented Vital Signs
Temp Pulse Resp BP Pulse Ox
97.6 F 126 16 105/71 98
06/04/23 23:23 06/04/23 23:23 06/04/23 23:23 06/04/23 23:23 06/04/23 23:23
MDM/Problems Addressed
MDM/Problems Addressed:
End-stage colorectal cancer
*Pulse Oximetry
Patient hypoxic: no
*Instrument Lens Inspector Interpretation
Rate: tachycardiac
Interpretation: abnormal
Rhythm: sinus
*Critical Care Note
Total Time (30-74mins, 75-104mins- exclusive of procedures): Not Applicable
Data Reviewed
Source: patient, significant other and other (Hospice nurse)
Further Testing Considered But Not Given:
Consider labs but patient is on hospice and just wants pain control
Patient Management
Discussion with other providers: Hospitalist
Escalation/DeEscalation of care consider admission/obs:
Extreme unfortunate patient with colorectal cancer his pain is uncontrolled. Admit for continued pain control and end-of-life care.
ED Attending Note
-
Portions of this chart may have been created with voice recognition software.� Occasional wrong word or��sound alike� substitutions may have occurred due to the inherent limitations of voice recognition software.
Discharge Plan
Departure
Patient Disposition: Admit
Date of Disposition: 06/03/23
Time of Disposition: 13:06
Admit to: Med/Surg
Presentation/result/management discussed w/ accepting MD/DO: Hospitalist
Discharge Problem:
Colorectal cancer, stage IV, Admission for end of life care
Interventions
Interventions:
*Risk Screen - Suicide Last Done: 06/03/23 12:28
*General Assessment Last Done: 06/03/23 13:45
*Neglect/Abuse Screening Last Done: 06/03/23 12:28
ED- Fall Risk Assessment Last Done: 06/03/23 13:43
*ED COVID-19 Vaccine History Last Done: 06/03/23 14:22
*Nursing Disposition Last Done: 06/03/23 14:38
LJ-Vbhjgg-Ongxxlwsan Assessment Last Done: 06/03/23 13:41
[2023-06-03] MEDS: DILAUDID 2 MG IV (13:14)
--- NOTE | 2023-06-03 13:54 | ADM.HSP ---
Admission - Hospice
History of Present Illness
52-year-old male with a past medical history of end-stage colorectal cancer status post ostomy, anemia of chronic disease, and chronic hyponatremia who presents from home hospice secondary to uncontrolled pain and end-of-life care. Patient reports
that he has diffuse pain, especially of his abdomen, and rectum. He is also nauseous with intermittent vomiting. He is severely cachectic, and has not been eating at all. Despite high doses of oral morphine, he continues to have uncontrolled pain.
Reason for Hospice Admission
end of life care, pain control
Review of Systems
History Source: Patient and Family
All other systems: Reviewed and Negative
Physical Exam
Temp Pulse Resp Pulse Ox
97.6 F 123 18 97
06/03/23 12:28 06/03/23 12:28 06/03/23 12:28 06/03/23 12:28
General: Appears Chronically Ill and Other (Cachectic appearing)
Respiratory: Clear to Auscultation
Cardiology: Regular Rhythm and S1/S2
GI: Ostomy and Other (Diffuse tenderness)
Musculoskeletal: No Clubbing, No Cyanosis and No Edema
Neuro: Other (Lethargic appearing)
Psych: Calm
Assessment/Medication Plan
#End-stage colorectal cancer status post ostomy
Start morphine drip step 5, Haldol IV as needed, Zofran/Compazine as needed
Provide emotional support to patient, , and family
Data Reviewed
Old Records: Reviewed
[2023-06-03] MEDS: ZOFRAN 4 MG IV (14:07)
[2023-06-03] MEDS: DILAUDID 1 MG IV (14:07)
--- NOTE | 2023-06-03 14:09 | HOSPNOTE ---
Spoke with patient and spouse and explained inpatient hospice. All in agreement, IV placed and a bolus dose of dilaudid was given. Spoke at length with attending and orders for hospice will be placed.Patient will be admitted into room 2131,
admissions was called. Patient will be seen daily by hospice nurse. English Composition Instructor was also in to see patient.
--- NOTE | 2023-06-03 15:04 | CHAP ---
Addendum entered by Sandra Burroughs 06/03/23 16:03:
[facility] [facility] [place] in [place] provided Sacrament of the Sick/Last Rites for Adonis.
Original Note:
Emotional and spiritual support provided for Mr. Willson and his at bedside. Soothing sabianist music playing in background. Ms. Willson reports that their own parish jack machine operator visited in the home. I provided a prayer blanket and we will follow
throughout his hospital stay.
[2023-06-03 15:19] VITALS: BP 130/94
[2023-06-03] MEDS: MORPHINE 100 IV (15:30)
[2023-06-03] MEDS: TRANSDERM-SCOP 1 PATCH TRANSDERM (15:31)
--- NOTE | 2023-06-03 16:12 | W.PN.UPDATE ---
Update Note
Progress Note Update
For billing purposes
[2023-06-03] MEDS: MORPHINE SULFATE 8 MG IV ×4 (16:17→18:27)
--- NOTE | 2023-06-03 16:20 | CM ---
Reviewed the chart notes. Patient resides with his spouse and daughters in a two story structure. The patient was on Hospice services prior to admission and is now [facility].
Plan: [facility].
[2023-06-03] MEDS: HALDOL 1 MG IV (20:00)
[2023-06-03] MEDS: COMPAZINE 10 MG IV (20:17)
[2023-06-03] MEDS: MORPHINE SULFATE 10 MG IV (20:22)
[2023-06-03 20:31] VITALS: BP 131/91
[2023-06-04] MEDS: MORPHINE 100 IV ×3 (00:45→18:47)
[2023-06-04] MEDS: HALDOL 1 MG IV ×6 (05:57→22:28)
[2023-06-04] MEDS: MORPHINE SULFATE 10 MG IV (05:58)
[2023-06-04] MEDS: FLUSH (NSS) 2 FLUSH IV ×6 (05:59→22:28)
--- NOTE | 2023-06-04 07:54 | W.PN.HOSP.TC ---
Today's Communication/Plan
-
Increase morphine drip to step 7
Increase Haldol IV
Assessment / Plan
Assessment / Plan
HPI: 52-year-old male with a past medical history of end-stage colorectal cancer status post ostomy, anemia of chronic disease, and chronic hyponatremia who presents from home hospice secondary to uncontrolled pain and end-of-life care. Patient
reports that he has diffuse pain, especially of his abdomen, and rectum. He is also nauseous with intermittent vomiting. He is severely cachectic, and has not been eating at all. Despite high doses of oral morphine, he continues to have
uncontrolled pain.
#End-stage colorectal cancer status post ostomy
Increase morphine drip step 7, increase Haldol to 1 mg IV every 1 hours as needed, also give 1 mg every 4 hours scheduled, continue Zofran/Compazine as needed
Provide emotional support to patient, , and family
Total time spent to see the patient on the floor, examine the patient, review data and lab results, discuss treatment plan with patient, nursing staff around 35 minutes.
Physical Exam:
General: Appears Chronically Ill and Other (Cachectic appearing)
Respiratory: Clear to Auscultation
Cardiology: Regular Rhythm and S1/S2
GI: Ostomy and Other (Diffuse tenderness)
Musculoskeletal: No Clubbing, No Cyanosis and No Edema
Neuro: Other (Lethargic appearing)
Psych: Calm
Anticipated Discharge: > 48 hours
Subjective/Interval History
-
Date of Service: June 04, 2023
Patient was comfortable overnight, however restless this morning. No fever, no vomiting.
Objective Data
-
Vital Signs:
Vital Signs
Temp Pulse Resp BP Pulse Ox
97.5 F 112 16 131/91 96
06/03/23 20:31 06/03/23 20:31 06/03/23 20:31 06/03/23 20:31 04/12/24 20:31
I&O
06/03/23 06/04/23 06/05/23
06:59 06:59 06:59
Intake Total 120 / 120
Output Total 400 / 400
Balance -280 / -280
[2023-06-04] MEDS: MORPHINE SULFATE 2 MG IV (07:57)
[2023-06-04] MEDS: COMPAZINE 10 MG IV (08:00)
[2023-06-04 08:44] VITALS: BP 118/85
--- NOTE | 2023-06-04 09:37 | HOSPNOTE ---
Patient assessed laying in bed, cachetic, fixed stare, minimally responsive at this time. Nods once in confirmation to this sn's assessment question. Lungs clear to auscultation, heart rate and rhythm is tachycardic, no bowel sounds noted at this
time. Patient fidgeting, with muscle spasms throughout this visit, tense, FLACC 1-2, patient had just received a prn dose of morphine. Patient's spouse present, much emotional support provided. Education on potential timeline, and what to expect
symptom diaz as the patient goes through the dying process. Clear understanding verbalized. Per Mrs. Willson's request this SN reached out to Lynn Chávez, to request that she reach out to Mrs. Willson to provide emotional support at her earliest
convenience. Reinforced the availability of hospital chaplains as well. Discussed with Dr Narvaez patient's symptom management, new orders to take the patient up to step 7 of the morphine protocol and schedule haldol q4h.
Patient has an adverse reaction to ativan, and requires haldol for anxiety/agitation management.
--- NOTE | 2023-06-04 16:10 | CHAP ---
Adonis was awake and somewhat agitated during the visit. His , Zulema, was lovingly attending to his needs. She shared that the family is well grounded in [place], and has been preparing for this a long time. 'It's just hard - at the end.'
Being involved in a dance team gives their two daughters 'a positive focus' during this most difficult time. Emotional and spiritual support provided.
--- NOTE | 2023-06-04 20:56 | PTCARENOTE ---
Per Patient's spouse, Nicole Willson (patient's sister) wants to talk to Dr. Narvaez. Her number is [phone].
[2023-06-04 23:23] VITALS: BP 105/71
[2023-06-05] MEDS: HALDOL 1 MG IV ×5 (01:48→12:43)
[2023-06-05] MEDS: FLUSH (NSS) 2 FLUSH IV ×5 (01:48→13:01)
[2023-06-05] MEDS: MORPHINE 100 IV ×2 (02:20→10:10)
[2023-06-05] MEDS: MORPHINE SULFATE 10 MG IV ×2 (05:04→07:20)
[2023-06-05 07:20] VITALS: BP 107/72
[2023-06-05] MEDS: REFRESH EYE DROPS (PF) 1 DROPS OPHTH (07:31)
--- NOTE | 2023-06-05 07:32 | W.PN.HOSP.TC ---
Today's Communication/Plan
-
Increase morphine to step 7
Increase frequency of Haldol
Assessment / Plan
Assessment / Plan
HPI: 52-year-old male with a past medical history of end-stage colorectal cancer status post ostomy, anemia of chronic disease, and chronic hyponatremia who presents from home hospice secondary to uncontrolled pain and end-of-life care. Patient
reports that he has diffuse pain, especially of his abdomen, and rectum. He is also nauseous with intermittent vomiting. He is severely cachectic, and has not been eating at all. Despite high doses of oral morphine, he continues to have
uncontrolled pain.
#End-stage colorectal cancer status post ostomy
Increase morphine drip step 7, increase Haldol to 1 mg IV every 1 hours as needed, also give 1 mg every 2 hours scheduled, continue Zofran/Compazine as needed
Provide emotional support to patient, , and family
Total time spent to see the patient on the floor, examine the patient, review data and lab results, discuss treatment plan with patient, nursing staff around 35 minutes.
Physical Exam:
General: Appears Chronically Ill and Other (Cachectic appearing)
Respiratory: Clear to Auscultation
Cardiology: Regular Rhythm and S1/S2
GI: Ostomy and Other (Diffuse tenderness)
Musculoskeletal: No Clubbing, No Cyanosis and No Edema
Neuro: Other (Lethargic appearing)
Psych: Calm
Anticipated Discharge: 24 - 48 hours
Subjective/Interval History
-
Date of Service: June 05, 2023
Patient having intermittent jerking. No fever, no vomiting.
Objective Data
-
Vital Signs:
Vital Signs
Temp Pulse Resp BP Pulse Ox
97.6 F 126 16 105/71 98
06/04/23 23:23 06/04/23 23:23 06/04/23 23:23 06/04/23 23:23 06/04/23 23:23
I&O
06/04/23 06/05/23 06/06/23
06:59 06:59 06:59
Intake Total 120 / 120 150 / 150
Output Total 400 / 400 475 / 475
Balance -280 / -280 -325 / -325
--- NOTE | 2023-06-05 10:53 | HOSPNOTE ---
Patient assessed laying in bed, minimally responsive. Eyes half open and unfocused, mouth remains open, intermittent twitching of the arms and legs. Lungs clear to auscultation, heart rate and rhythm is tachycardic, hypoactive bowel sounds. FLACC
0-1 on assessment, intermittent brief moaning which resolved. Patient's spouse and two daughters in the room during the visit. Much emotional support provided. Patient continues on haldol q2h and morphine drip at step 8. Informal conference with RN
Lianna, no further questions or concerns.
[2023-06-05] MEDS: MORPHINE SULFATE 2 MG IV (13:00)
--- NOTE | 2023-06-05 13:33 | CHAP ---
, Zulema, reported that the prayer blanket got soiled. Another was provided. Visited together with Hospice nurse - daughters, Penny Liz and Jose were present. Emotional support provided.
--- NOTE | 2023-06-05 14:20 | W.DCSUMMARY ---
Discharge Summary
Discharge Data
Date of Admission: 06/03/23
Date of Discharge: 06/05/23
-
Pending Results: No
Hospital Course
Discharge diagnosis:
End-stage colorectal cancer
Date of expiration: 06/05/2023
Time of expiration: 14:00
Hospital course:
52-year-old male with a past medical history of end-stage colorectal cancer status post ostomy, anemia of chronic disease, and chronic hyponatremia who was admitted to inpatient hospice for end-of-life care and intractable pain. Patient was treated
with IV morphine drip, IV Haldol, and IV Compazine. He had severe pain, and required high doses of morphine. His morphine drip was titrated to step 7, his IV Haldol was increased. Patient became comfortable. He peacefully on 06/05/2023 at
14:00. Family at bedside. Condolences offered.
Discharge Plan
-
Referrals:
Brit Cummins MD [Family Provider] -
Prescriptions:
No Action
morphine [MS Contin] 200 mg Tablet Extended Release
200 mg PO Q12H
Patient Comments:
06/03/2023: last filled 05/26/23, 30 tabs for 15 days from [facility]
Compazine
0.5 tab PO PRN PRN (Reason: nausea)
Haldol
1 ml PO PRN PRN (Reason: comfort)
Morphine 20mg/Ml
40 mg PO Q2H PRN (Reason: moderate pain)
Patient Comments:
06/03/2023: last filled 05/18/23, 420ml for 18 days from [facility]
Discharge Date and Time
Print Language: [place]
--- NOTE | 2023-06-05 14:37 | PTCARENOTE ---
Pt is refusing to take the vibramycin that the doctor has recommended for. She states that she can't take the generic form of this. Pharmacy does not carry any other brand.
[2023-06-05] MEDS: HALDOL IV ×2 (14:59→17:17)
--- NOTE | 2023-06-05 16:44 | PTCARENOTE ---
Pt at 14:00. Family at bedside. Awaiting pt's sister and brother per patients wishes. Pt is to be cremated and immediate family is to visit before pt leaves the hospital. Awaiting family from [place]. Will cont to monitor.
== END 2023-06-05 20:31 | disposition expired | DRG 947 ==
LOC: 2 NORTH 14:12
PROVIDERS: ADMITTING PHYSICIAN Family Medicine; EMERGENCY PHYSICIAN Emergency Medicine; FAMILY PHYSICIAN Internal Medicine Hospice and Palliative Medicine
DX: G89.3 Neoplasm related pain (acute) (chronic) (principal); D67 Hereditary factor IX deficiency; C19 Malignant neoplasm of rectosigmoid junction; E87.1 Hypo-osmolality and hyponatremia; Z68.1 Body mass index [BMI] 19.9 or less, adult; Z51.5 Encounter for palliative care; R64 Cachexia; D63.8 Anemia in other chronic diseases classified elsewhere; Z66 Do not resuscitate; Z93.3 Colostomy status; R11.2 Nausea with vomiting, unspecified
CPT/HCPCS: 96374; 99284